=== PATIENT | female | born 1995 | race Caucasian/White ===

== ENCOUNTER → 2025-01-25 14:28 | Outpatient (REF) | payer OTHER, SELFPAY | LOC: RAD 14:28 | PROVIDERS: ATTENDING PHYSICIAN Obstetrics & Gynecology; FAMILY PHYSICIAN Physician Assistant | DX: E01.0 Iodine-deficiency related diffuse (endemic) goiter (principal) | CPT/HCPCS: 76536 ==

== ENCOUNTER 2025-06-11 19:02 | Emergency (ER) | payer OTHER, SELFPAY ==
[2025-06-11 19:04] VITALS: BP 136/87
[2025-06-11] MEDS: ZOFRAN 4 MG IV (19:20)
[2025-06-11] MEDS: MORPHINE SULFATE 4 MG IV (19:25)
[2025-06-11 19:50] VITALS: BP 128/85
[2025-06-11] MEDS: DILAUDID 1 MG IV (20:00)
[2025-06-11 20:05] VITALS: BP 128/84
[2025-06-11 20:06] VITALS: BMI 29.2
--- NOTE | 2025-06-11 20:30 | ED.GENMED ---
History of Present Illness
General
Chief Complaint: Musculo-Skeletal Complaint
Source: patient
Time Seen by Provider: 06/11/25 19:11
History of Present Illness
History of Present Illness:
Note:
CHIEF COMPLAINT(S)
Pain and swelling in the right wrist after dancing.
HISTORY OF PRESENT ILLNESS
The patient, a female, presented with pain and swelling in her right wrist following an episode of dancing. She reports being unable to make a full fist due to the pain, and while she can move her shoulder and elbow without difficulty, the primary
issue is localized to her wrist. The pain began shortly after the incident, and she is also experiencing nausea. The patient described the pain as significant, stating, 'I mean, not great.' No prior injuries to the elbow or shoulder were noted. An
X-ray has been ordered to evaluate the extent of the injury and to determine if there is any degree of angulation that may require intervention.
The patient is open to receiving pain management medication and will receive intravenous morphine while awaiting the X-ray results. The medical team is prepared to sedate and perform a reduction if necessary, depending on the X-ray findings.
PHYSICAL EXAM
General: Alert, oriented, and cooperative.
Skin: Warm, dry.
Head: Normocephalic, atraumatic.
Neck: Supple, trachea midline.
Eye, Ears, Nose, Mouth, and Throat: Oral mucosa moist.
Cardiovascular: Normal peripheral perfusion, no edema.
Respiratory: Respirations are non-labored.
Gastrointestinal: Abdomen nondistended.
Back: Normal range of motion, normal alignment.
Musculoskeletal: Significant tenderness and swelling at the distal radius of the right wrist. The patient is unable to make a full fist due to pain. Normal capillary refill and neurological function distally. Right elbow and right shoulder
unaffected.
Neurological: Alert and oriented to person, place, time, and situation, no focal neurological deficit observed.
Psychiatric: Cooperative, appropriate mood & affect.
PROBLEM LIST
Acute problems:
- Acute right wrist pain and swelling post-dancing fall.
- Nausea.
PLAN
1. Obtain and analyze X-ray of the right wrist to assess for fractures or angulation.
2. Administer intravenous morphine for pain management.
3. If the X-ray indicates significant angulation or misalignment, prepare for possible sedation and reduction.
4. Discuss further pain management options including alternatives such as acetaminophen if initial treatment is insufficient.
DIFFERENTIAL DIAGNOSIS
The Differential Diagnosis includes, in no particular order and is not limited to:
1. Distal radius fracture
2. Wrist sprain
3. Ulnar styloid fracture
4. Ligamentous injury of the wrist
5. Soft tissue contusion
6. Carpal bone fracture (e.g., scaphoid or lunate)
7. Triangular fibrocartilage complex tear
8. De Quervain�s tenosynovitis
9. Joint effusion
10. Tendon injury (e.g., tendonitis or rupture)
Disposition:
SUMMARY OF ENCOUNTER
The patient presented to the emergency department with significant pain and swelling in the right wrist following a fall while dancing. Upon examination and imaging, the diagnosis of a distal radius fracture with an associated ulnar styloid fracture
was established, exhibiting dorsal angulation of the distal radial fragment. Neurovascular status was noted to be intact. Given the findings, the decision was made to proceed with volar splinting to stabilize the fracture temporarily.
PLAN
The patient will have a volar splint applied to manage the distal radius and ulnar styloid fractures. She is advised to follow up closely with orthopedic outpatient care for further evaluation and management, including possible reduction and
fixation if necessary.
INDEPENDENT REVIEW OF LABS AND INTERPRETATION OF TESTS
- My independent X-ray interpretation confirms a distal radius fracture with ulnar styloid fracture and dorsal angulation of the distal radial fragment.
PATIENT EDUCATION AND COUNSELING
The patient was counseled on the nature of her wrist fracture, the importance of keeping the splint in place, and the need for orthopedic follow-up. She was informed about signs of possible complications, such as increased pain, numbness, or changes
in circulation to the hand, and instructed to seek immediate medical attention if these occur.
FOLLOW-UP INSTRUCTIONS
Schedule a follow-up visit with an seo marketing specialist as soon as possible for further evaluation and management of the wrist fracture.
MEDICAL DECISION MAKING
-Complexity of Data Reviewed: The differential diagnoses include:
1. Distal radius fracture
2. Wrist sprain
3. Ulnar styloid fracture
4. Ligamentous injury of the wrist
5. Soft tissue contusion
6. Carpal bone fracture (e.g., scaphoid or lunate)
7. Triangular fibrocartilage complex tear
8. De Quervain�s tenosynovitis
9. Joint effusion
10. Tendon injury (e.g., tendonitis or rupture)
-Data:
Category 1:
- My independent interpretation of the wrist X-ray confirmed a distal radius fracture with an ulnar styloid fracture and dorsal angulation.
-Risk:
Prescription medication was prescribed: The patient received immobilization through splinting, and potential risks of complications were discussed, with details of follow-up care emphasized.
DIAGNOSIS
1. Distal radius fracture with dorsal angulation (ICD-10: S52.531A)
2. Ulnar styloid fracture (ICD-10: S52.6XXA)
Phy Exam
Physical Exam
Physical Exam:
.
Course
Orders/Labs/Results
Orders:
Orders
06/11/25 19:10
CR Wrist - Right Min 3 Views Urgent
Comment:
Reason For Exam: injury
06/11/25 19:16
Morphine Sulfate 4 mg IV NOW STA
Ondansetron Injectable [Zofran] 4 mg IV NOW STA
06/11/25 19:53
HYDROmorphone [Dilaudid] 1 mg IV NOW STA
Vital Signs
Initial and Last Documented VS:
Initial Vital Signs
Temp Pulse Resp BP Pulse Ox
98.4 F 60 16 136/87 98
06/11/25 19:04 06/11/25 19:04 06/11/25 19:04 06/11/25 19:04 06/11/25 19:04
Last Documented Vital Signs
Temp Pulse Resp BP Pulse Ox
98.4 F 67 17 128/84 100
06/11/25 19:04 06/11/25 20:05 06/11/25 20:05 06/11/25 20:05 06/11/25 20:31
Procedures
Splinting/Sling Placement
Right Wrist:
Procedure completed by: Dr. Ramirez
Pre-splint extermity exam: neurovascular intact
Type of splint: sugar-tong
Splint material: fiberglass
Normal distal neurovascular exam?: Yes
Additional information:
Volar molding performed
*Pulse Oximetry
SaO2: 100
Oxygen Mode of Delivery: Room air
Patient hypoxic: no
*Critical Care Note
Total Time (30-74mins, 75-104mins- exclusive of procedures): Not Applicable
ED Attending Note
-
Portions of this chart may have been created with voice recognition software.� Occasional wrong word or��sound alike� substitutions may have occurred due to the inherent limitations of voice recognition software.
Discharge Plan
Departure
Patient Disposition: Home (Routine Discharge)
Date of Disposition: 06/11/25
Time of Disposition: 20:30
Patient with high blood pressure during this ER visit?: No
Discharge Problem:
Distal radius fracture, right, Fracture of ulnar styloid
Instructions: Wrist Fracture
Prescriptions:
New
hydrocodone-acetaminophen 5-325 mg tablet
2 tab PO Q6H PRN (Reason: Pain) Qty: 12 0RF
Referrals:
Ayala Jara PA [Family Provider]
Finn Drake MD [Active, Orthopedics]
Activity Restrictions/Additional Instructions:
Please see orthopedics in the next 3 to 5 days for follow-up and reevaluation. Please ice aggressively and keep your injured arm elevated when possible. Return immediately for worsening pain, numbness, tingling or any other concerns. Use
ibuprofen every 6 hours for swelling and pain control.
Interventions
Interventions:
*Risk Screen - Suicide Last Done: 06/11/25 20:08
*General Assessment Last Done: 06/11/25 20:08
*Neglect/Abuse Screening Last Done: 06/11/25 20:08
*ED- Fall Risk Assessment Last Done: 06/11/25 20:08
*ED COVID-19 Vaccine History Last Done: 06/11/25 20:08
ED-Musculoskeletal Assessment Last Done: 06/11/25 19:20
Discharge Date and Time
Print Language: GUYANESE
[2025-06-11 20:39] VITALS: BP 118/78
== END 2025-06-11 20:54 | disposition home or self-care (01) ==
LOC: EMR 19:02
PROVIDERS: EMERGENCY PHYSICIAN Emergency Medicine; FAMILY PHYSICIAN Physician Assistant
DX: S52.501A Unspecified fracture of the lower end of right radius, initial encounter for closed fracture (principal); S52.611A Displaced fracture of right ulna styloid process, initial encounter for closed fracture; W19.XXXA Unspecified fall, initial encounter; Y93.41 Activity, dancing
CPT/HCPCS: 99284; 96374; 96375 ×2; 29125; 73110

== ENCOUNTER 2025-06-19 06:19 | Day surgery (SDC) | payer OTHER, SELFPAY ==
[2025-06-19] VITALS (8 sets, daily range): BP systolic 107–132; BP diastolic 70–86; BMI 29.2
[2025-06-19] MEDS: NORMOSOL-R/PLASMALYTE-A 1000 IV (10:11)
[2025-06-19] MEDS: TYLENOL 1000 MG PO (10:11)
== END 2025-06-19 13:38 | disposition home or self-care (01) ==
LOC: SDS 06:19
PROVIDERS: ATTENDING PHYSICIAN Orthopaedic Surgery
DX: S52.571A Other intraarticular fracture of lower end of right radius, initial encounter for closed fracture (principal); W19.XXXA Unspecified fall, initial encounter
CPT/HCPCS: 25609; C1713